=== PATIENT | female | born 1950 | race Caucasian/White ===

== ENCOUNTER 2020-04-21 12:46 | Outpatient (CLI) | payer OTHER | END 2020-04-21 14:18 | disposition home or self-care (01) | LOC: SONOGRAMA 12:46 | PROVIDERS: ATTEND Pathology Anatomic Pathology & Clinical Pathology | DX: R59.0 Localized enlarged lymph nodes (principal); C77.9 Secondary and unspecified malignant neoplasm of lymph node, unspecified; C77.3 Secondary and unspecified malignant neoplasm of axilla and upper limb lymph nodes ==

== ENCOUNTER 2025-02-04 06:28 | Day surgery (SDC) | payer OTHER ==
[2025-01-29 08:54] VITALS: BP 150/83
[2025-01-29 09:03] LABS: EOS % 2.4 % (0.7-7.0); HEMATOCRIT 41.8 % (34.1-44.9); HEMOGLOBIN 14.4 g/dL (11.2-15.7); LYMPH # 1.45 (1.18-3.74); LYMPH % 34.6 % (19.3-53.1); MEAN CORPUSCULAR HEMOGLOBIN 32.8 pg (25.6-32.2); MONO # 0.29 (0.24-0.82); MONO % 6.9 % (4.7-12.5); NEUT % 54.9 % (34.0-71.1); PLATELET COUNT 222 K/uL (163-369); RED BLOOD COUNT 4.39 M/uL (3.93-5.22); RED CELL DISTRIBUTION WIDTH 12.7 % (11.6-14.4)
[2025-01-29 09:40] LABS: INR 1.06; PARTIAL THROMBOPLASTIN TIME 27.6 SECONDS (22.0-34.0); PROTHROMBIN TIME 11.5 SECONDS (9.0-11.5)
[2025-01-29 10:25] LABS: BILIRUBIN TOTAL 1.01 mg/dL (0.3-1.2); CALCIUM 8.9 mg/dL (8.5-10.1); CREATININE SERUM 0.66 mg/dL (0.55-1.02); GFR 87.54; GLOBULINA 3.6 G/DL (2.4-3.5); POTASSIUM 3.59 mEq/L (3.5-5.1); TOTAL PROTEIN 7.6 gm/dL (6.4-8.2)
[~2025-02-04] VITALS: Ht 160 cm; Wt 73.5 kg
[~2025-02-04 06:28] MED LIST: DIOVAN160 M1; FAMOTIDINE40 MG PO; LIPITOR40 M1; NORVASC10 MG; OMEPRAZOLE-BIC1 EAC1
[2025-02-04] MEDS ORDERED: IOVERSOL 320 MG/ML - 50 ML VIAL IV ONE (09:25)
== END 2025-02-04 14:50 | disposition home or self-care (01) ==
LOC: CIR.AMB 06:28
PROVIDERS: ATTEND Internal Medicine
DX: R93.2 Abnormal findings on diagnostic imaging of liver and biliary tract (principal); K86.89 Other specified diseases of pancreas; K76.89 Other specified diseases of liver; R94.5 Abnormal results of liver function studies

== ENCOUNTER 2025-03-22 05:40 | Day surgery (SDC) | payer OTHER ==
[2025-03-18 07:52] VITALS: BP 125/78
[2025-03-18 08:39] LABS: BASO % 0.6 % (0.1-1.2); EOS # 0.10 (0.04-0.54); EOS % 2.1 % (0.7-7.0); LYMPH # 1.10 (1.18-3.74); LYMPH % 23.1 % (19.3-53.1); MEAN PLATELET VOLUME 8.50 fl (9.4-12.4); MONO # 0.26 (0.24-0.82); MONO % 5.5 % (4.7-12.5); NEUT # 3.27 (1.56-6.13); NEUT % 68.5 % (34.0-71.1); RED CELL DISTRIBUTION WIDTH 11.9 % (11.6-14.4)
[2025-03-18 09:00] LABS: INR 1.09
[2025-03-18 09:05] LABS: ALT/SGPT 31.0 U/L (12-78); AST/SGOT 24.0 U/L (15-37); BILIRUBIN TOTAL 0.73 mg/dL (0.3-1.2); BUN CREA RATIO 18.0 (7.0-25.0); CREATININE SERUM 0.74 mg/dL (0.55-1.02); GFR 76.72; GLOBULINA 3.5 G/DL (2.4-3.5); GLUCOSE FASTING 100.0 mg/dL (65-100); OSMOLALITY SERUM 283.0 MOSM/KG (275-295)
[~2025-03-22] VITALS: Ht 160 cm; Wt 49.9 kg
== END 2025-03-22 22:35 | disposition home or self-care (01) ==
LOC: CIR.AMB 05:40
PROVIDERS: ATTEND Internal Medicine
DX: K83.1 Obstruction of bile duct (principal); K83.8 Other specified diseases of biliary tract; R93.2 Abnormal findings on diagnostic imaging of liver and biliary tract; K83.09 Other cholangitis
CPT/HCPCS: 43238; 43276; C1748

== ENCOUNTER 2025-04-19 06:30 | Day surgery (SDC) | payer OTHER | END 2025-04-19 15:30 | disposition home or self-care (01) | LOC: CIR.AMB 06:30 → AMB-ENDOS 08:35 → CIR.AMB 08:38 | PROVIDERS: ATTEND Internal Medicine | DX: D37.6 Neoplasm of uncertain behavior of liver, gallbladder and bile ducts (principal); K83.1 Obstruction of bile duct; R93.1 Abnormal findings on diagnostic imaging of heart and coronary circulation ==

== ENCOUNTER 2025-06-24 09:00 | Day surgery (SDC) | payer OTHER ==
[2025-06-21 07:27] VITALS: BP 138/73
[2025-06-21 08:04] LABS: BASO % 0.7 % (0.1-1.2); EOS # 0.11 (0.04-0.54); EOS % 2.7 % (0.7-7.0); LYMPH # 1.00 (1.18-3.74); LYMPH % 24.3 % (19.3-53.1); MEAN PLATELET VOLUME 8.20 fl (9.4-12.4); MONO # 0.34 (0.24-0.82); MONO % 8.3 % (4.7-12.5); NEUT # 2.63 (1.56-6.13); NEUT % 63.8 % (34.0-71.1); RED CELL DISTRIBUTION WIDTH 12.3 % (11.6-14.4)
[2025-06-21 08:50] LABS: INR 1.02
[2025-06-21 08:56] LABS: ALT/SGPT 37.0 U/L (12-78); AST/SGOT 27.0 U/L (15-37); BILIRUBIN TOTAL 0.81 mg/dL (0.3-1.2); BUN CREA RATIO 17.0 (7.0-25.0); CREATININE SERUM 0.71 mg/dL (0.55-1.02); GFR 80.25; GLOBULINA 3.6 G/DL (2.4-3.5); GLUCOSE FASTING 102.0 mg/dL (65-100); OSMOLALITY SERUM 276.0 MOSM/KG (275-295)
[~2025-06-24] VITALS: Ht 154.9 cm; Wt 47.6 kg
[2025-06-24] MEDS ORDERED: SUGAMMADEX SODIUM 200 MG/2 ML VIAL IV ONE (12:41)
[2025-06-24] MEDS ORDERED: GLUCAGON 1 MG VIAL ONE (12:42)
[2025-06-24] MEDS ORDERED: IOVERSOL 320 MG/ML - 50 ML VIAL IV ONE (12:42)
== END 2025-06-24 17:20 | disposition home or self-care (01) ==
LOC: CIR.AMB 09:00
PROVIDERS: ATTEND Internal Medicine
DX: K83.1 Obstruction of bile duct (principal); R93.3 Abnormal findings on diagnostic imaging of other parts of digestive tract; K86.9 Disease of pancreas, unspecified; R93.5 Abnormal findings on diagnostic imaging of other abdominal regions, including retroperitoneum